=== PATIENT | male | born 1980 | race Caucasian/White ===

== ENCOUNTER 2023-07-22 18:23 | Inpatient (IN) | payer BC, OTHER ==
[2023-07-22 18:43] VITALS: BMI 25.6
[2023-07-22] MEDS ORDERED: ACETAMINOPHEN 1000 MG/100 ML BAG IVPB ONE (19:37)
[2023-07-22] MEDS ORDERED: VANCOMYCIN 1,000 MG in DEXTROSE 5%-WATER - 250 ML IVPB ONE (19:38)
[2023-07-22] MEDS ORDERED: CLINDAMYCIN 600MG PREMIX IVPB 600 MG/50 ML BAG IVPB ONE ×2 (19:39→20:06)
[2023-07-22] MEDS ORDERED: DOXYCYCLINE INJECTION 100 MG in DEXTROSE 5%-WATER 100 ML IVPB ONE (19:40)
[2023-07-22] MEDS ORDERED: ACETAMINOPHEN INJECTION 100 ML IVPB ONE (19:53)
[2023-07-22 20:22] LABS: INR 1.4 (0.83-1.09); PROTHROMBIN TIME (PATIENT) 16.2 SEC (9.7-13.0)
[2023-07-22] MEDS ORDERED: DOXYCYCLINE HYCLATE 100 MG VIAL ONE (20:24)
[2023-07-22] MEDS ORDERED: VANCOMYCIN 1,000 MG VIAL (RESTRICTED TO ID ONLY) ONE (20:24)
[2023-07-22 20:32] LABS: HEMATOCRIT 46.2 % (35.4-49); HEMOGLOBIN 15.6 G/dL (11.7-16.9); MCH 29.2 pg (25.7-33.7); MCHC 33.8 g/dl (32.0-35.9); MEAN CELL VOLUME 86.3 fl (80-96); MEAN PLT VOLUME 9.1 fl (7.5-11.1); PLATELET COUNT 159.3 10^3/uL (134-434); RBC 5.35 10^6/uL (4.00-5.60); RDW 13.3 % (11.9-15.9); WHITE BLOOD COUNT 11.7 10^3/uL (4.0-10.8)
[2023-07-22 20:35] LABS: ALBUMIN 4.3 g/dl (3.4-5.0); BILIRUBIN,TOTAL 0.9 mg/dl (0.2-1); CALCIUM 8.5 mg/dl (8.5-10.1); CREATININE 1.2 mg/dl (0.6-1.3); POTASSIUM 3.6 mmol/L (3.5-5.1); TOT PROT 6.6 g/dl (6.4-8.2)
[2023-07-22 21:09] LABS: PLATELET ESTIMATE ADEQUATE
[2023-07-22] MEDS ORDERED: IBUPROFEN 600 MG TABLET (FP) PO ONE (21:12)
[2023-07-22 22:50] VITALS: RESP 20
[2023-07-22] MEDS ORDERED: IBUPROFEN 400 MG TABLET (FP) PO ONE ×2 (22:51→22:52)
[2023-07-23] MEDS ORDERED: LEVOTHYROXINE NA 150 MCG TABLET PO SCH (07:00)
[2023-07-23 08:01] LABS: HEMATOCRIT 42.3 % (35.4-49); HEMOGLOBIN 14.2 G/dL (11.7-16.9); MCH 28.6 pg (25.7-33.7); MCHC 33.5 g/dl (32.0-35.9); MEAN CELL VOLUME 85.6 fl (80-96); MEAN PLT VOLUME 9.3 fl (7.5-11.1); PLATELET COUNT 162.4 10^3/uL (134-434); RBC 4.94 10^6/uL (4.00-5.60); RDW 13.6 % (11.9-15.9); WHITE BLOOD COUNT 15.8 10^3/uL (4.0-10.8)
[2023-07-23] MEDS ORDERED: DOXYCYCLINE INJECTION 100 MG in DEXTROSE 5%-WATER 100 ML IVPB ONE (08:30)
[2023-07-23] MEDS ORDERED: CEFAZOLIN 1 GM in DEXTROSE 5%-WATER - 50 ML IVPB ONE (08:30)
[2023-07-23 08:46] LABS: CALCIUM 7.6 mg/dl (8.5-10.1); CREATININE 1.1 mg/dl (0.6-1.3); POTASSIUM 3.5 mmol/L (3.5-5.1)
[2023-07-23] MEDS ORDERED: IBUPROFEN 400 MG TABLET (FP) PO PRN (08:55)
[2023-07-23] MEDS ORDERED: SULFAMETHOXAZOLE/TRIMETHOPRIM 800MG/160MG D.S. TABLET PO SCH (10:00)
[2023-07-23 12:57] VITALS: BP 110/68; PULSE 104; TEMP 97.7
== END 2023-07-23 13:44 | disposition home or self-care (01) | DRG 603 ==
LOC: FER 18:23 → FM/S 21:16
PROVIDERS: ADMIT Internal Medicine; ATTEND Internal Medicine
DX: L03.113 Cellulitis of right upper limb (principal); E03.9 Hypothyroidism, unspecified
CPT/HCPCS: 0241U-QW; 36415; 73070-TC-RT-FY; 73200-TC-RT; 80048; 80053; 83605; 85025; 85027; 85610; 85651; 86140; 86618; 86850; 86900; 86901; 87040; 99285-25

== ENCOUNTER 2025-03-13 14:39 | Emergency (ER) | payer OTHER ==
[2025-03-13 14:57] VITALS: BP 127/85; PULSE 88; RESP 18; TEMP 98.1; BMI 26.9
== END 2025-03-13 16:35 | disposition home or self-care (01) ==
LOC: FER 14:39
DX: T81.31XA Disruption of external operation (surgical) wound, not elsewhere classified, initial encounter (principal)
CPT/HCPCS: 99283-25